=== PATIENT | female | born 1950 | race Caucasian/White ===

== ENCOUNTER 2018-11-11 05:57 | Outpatient (CLI) | payer MEDICARE ==
[~2018-11-11] VITALS: Ht 170.2 cm; Wt 115.7 kg
[~2018-11-11 05:57] MED LIST: HYDROCHLOROTHIA25 MG PO; K-TAB10 MEQ PO
[2018-11-11 06:38] LABS: HEMATOCRIT 41.2 % (36.0-48.0); HEMOGLOBIN 13.9 g/dL (12-16); MCH 30.3 pg (26.0-34.0); MCHC 33.7 g/dL (31.0-37.0); MEAN PLATELET VOLUME 9.1 fL (7.4-10.4); RBC 4.58 10x6/uL (4.00-5.40); RDW 13.9 % (11.5-14.5); WBC 9.3 10x3/uL (4.8-10.8)
[2018-11-11 06:58] LABS: ANION GAP 12.5 mmol/L (8-16); CALCIUM 9.7 mg/dL (8.5-10.1); CARBON DIOXIDE 26.8 mmol/L (21.0-32.0); POTASSIUM - SERUM 3.3 mmol/L (3.5-5.1)
[2018-11-11] MEDS ORDERED: YEAST CREAM (07:41)
[2018-11-11] MEDS ORDERED: NAPROSYN500 MG (07:41)
[2018-11-11 08:11] VITALS: BP 138/74; Ht 170.2 cm; Wt 115.7 kg
--- NOTE | 2018-11-11 09:24 | NUR ---
7080 DR BECKER SPOKE WITH PT ABOUT HIS CONSULTATION WITH DR CARR. CARDIOLOGY CLEARANCE IS RECOMMENDED WITH PT HX OF CP FOR SEVERAL WEEKS, SMOKING HX, AND FAMILY HX OF CAD. WILL CHECK WITH DR CARR'S OFFICE FOR AVAILABILITY TO BE SEEN TODAY.
--- NOTE | 2018-11-11 09:28 | NUR ---
0910 APPOINTMENT FOR 1PM MADE FOR PT TO BE SEEN TODAY WITH DR. CARR. DR BECKER NOTIFIED AND IS FINE WITH THIS PLAN. PT AWARE THAT IF ANY FUTURE CP OCCURS TO GO TO THE ER. PT DENIES ANY CP PRESENTLY AND HAS BEEN RESTING AFTER RECEIVING PREOP MEDS. PT STATES SHE DID NOT SLEEP ANY LAST NIGHT AND HAS BEEN EXHAUSTED THIS MORNING. 919 IV DC'D. CATHETER TIP INTACT. NO BLEEDING AT SITE. BANDAID APPLIED. 30 PT DISCHARGED HOME AND ACCOMPANIED BY HER . DENIES CP.
== END 2018-11-11 09:30 | disposition home or self-care (01) ==
LOC: D.OPS 05:57 → D.PAN 09:30 → D.OPS 09:30 → EDSTATUS 10:45 → D.OPS 10:45 → D.PAN 10:45
PROVIDERS: Anesthesiology; ATTEND Orthopaedic Surgery
DX: M75.100 Unspecified rotator cuff tear or rupture of unspecified shoulder, not specified as traumatic (principal); Z53.9 Procedure and treatment not carried out, unspecified reason; Z01.812 Encounter for preprocedural laboratory examination

== ENCOUNTER → 2018-11-18 10:11 | Outpatient (CLI) | payer MEDICARE ==
[2018-11-11 08:11] VITALS: BMI 40.0
[~2018-11-18 10:11] MED LIST changes: +NAPROSYN500 MG; +YEAST CREAM
== END | disposition home or self-care (01) ==
LOC: D.HCCARDIO 11-17 11:30
PROVIDERS: ATTEND Internal Medicine Cardiovascular Disease
DX: I20.9 Angina pectoris, unspecified (principal)